=== PATIENT | female | born 1995 | race Caucasian/White ===

== ENCOUNTER 2016-12-06 14:02 | Emergency (ER) | payer MEDICAID ==
[~2016-12-06] VITALS: Ht 160 cm; Wt 88.0 kg
[~2016-12-06 14:02] MED LIST: PRENCAP6 PO; PROM25TA5 PO
[2016-12-06 14:09] VITALS: BP 137/84; PULSE 89; RESP 16; TEMP 98.7; O2SAT 97
--- NOTE | 2016-12-06 14:55 | PD ---
HPI . sore throat for a few days Chief Complaint: Cold / Flu Symptoms Time Seen by Provider: 14:55 Travel History International Travel<30 days: No Contact w/Intl Traveler<30days: No Traveled to known affect area: No History of Present Illness HPI 20-year-old female with no significant past medical history here with complaints of sore throat. She also admits to some congestion and says she has had this for several weeks and it is gradually getting better. She says she thinks she initially had bronchitis, which is now improved. Today she is here with complaints of sore throat and difficulty swallowing. Patient that she opened her mouth looked and saw some white spots. She has self diagnosed with strep and here for treatment. She denies any fever or chills. She has recently started working at a daycare. [facility] Past Medical History Medical History: Denies Significant Hx Asthma: Yes (BRONCHITIS) Diminished Hearing: No Immunizations Current: Yes Tetanus Vaccination: Unknown ?: Not : 0 Para: 1 Past Surgical History Section: Yes Social History Alcohol Use: No Tobacco Use: No Substance Use: No Allergies-Medications (Allergen,Severity, Reaction): Coded Allergies: No Known Allergies (Verified , 12/06/16) Reported Meds & Prescriptions Reported Meds & Active Scripts Active Review of Systems General / Constitutional: No: Fever Eyes: No: Visual changes HENT: Positive: Sore Throat, No: Headaches Cardiovascular: No: Chest Pain or Discomfort Respiratory: No: Shortness of Breath Gastrointestinal: No: Abdominal Pain Genitourinary: No: Dysuria Musculoskeletal: No: Pain Skin: No Rash Neurologic: No: Weakness Psychiatric: No: Depression Endocrine: No: Polydipsia Hematologic/Lymphatic: No: Easy Bruising Physical Exam Narrative GENERAL: AAO x 3, no acute distress, Well-nourished, well-developed patient. SKIN: Warm and dry. No visible rashes or bruising. HEAD: Normocephalic and atraumatic. EYES: No scleral icterus. No injection or drainage. ENT: No nasal drainage noted. Mucous membranes pink. Airway patent. No posterior pharynx erythema, exudates or edema. Both TMs are normal. NECK: Supple, trachea midline. No JVD. CARDIOVASCULAR: Regular rate and rhythm without murmurs, gallops, or rubs. RESPIRATORY: Breath sounds equal bilaterally. No accessory muscle use. No rhonchi or rales. GASTROINTESTINAL: Abdomen soft, non-tender, nondistended. EXTREMITIES: No cyanosis or edema. BACK: Nontender without obvious deformity. No CVA tenderness. PSYCH: AAO x 3, normal affect. Data Data Last Documented VS Vital Signs Date Time Temp Pulse Resp B/P Pulse Ox O2 Delivery O2 Flow Rate FiO2 12/06/16 14:09 98.7 89 16 137/84 97 Orders Group A Rapid Strep Screen (12/06/16 14:58) Influenzae A/B Antigen (12/06/16 14:58) Strep Culture (Group A) (12/06/16 15:10) MDM Medical Decision Making Medical Screen Exam Complete: Yes Emergency Medical Condition: Yes Medical Record Reviewed: Yes Differential Diagnosis Viral pharyngitis, sinusitis, less likely influenza Narrative Course 20-year-old female with no significant past medical history here with complaints of sore throat. She also admits to some congestion and says she has had this for several weeks and it is gradually getting better. She says she thinks she initially had bronchitis, which is now improved. Today she is here with complaints of sore throat and difficulty swallowing. Patient that she opened her mouth looked and saw some white spots. She has self diagnosed with strep and here for treatment. She denies any fever or chills. She has recently started working at a daycare. Patient seen and examined. She has no significant findings on examination. I recommend influenza swab and rapid strep. If negative she can use symptomatic forms of treatment including over-the- counter Flonase, Claritin or Zyrtec. She can also use Tylenol or Motrin as needed for throat pain. Date/Time Procedure Status Source Growth 12/06/16 15:10 Group A Streptococcus Screen ([facility]) - Final Complete Throat 12/06/16 15:10 Influenza Types A,B Antigen ([facility]) - Final Complete Nasal Washing NEGATIVE FOR FLU A AND B ANTIGEN.... 12/06/16 15:10 Group A Streptococcus Screen Received Throat Pending Patient verbalized understanding of instructions, questions were answered, and thanked me for their care. I advised them if their condition worsens, please return to the nearest emergency room for further care. Diagnosis Primary Impression: Acute pharyngitis Qualified Code: J02.9 - Acute pharyngitis, unspecified etiology Patient Instructions: General Instructions Departure Forms: Tests/Procedures, Work Release Enter return to work date: Dec 07, 2016 Additional Instructions: Please return to emergency department if your symptoms return or worsen. Follow up with your primary care provider. You continues Tylenol or Motrin as needed for pain and fever. Follow up with her primary care provider for further workup if your symptoms continue. Try over the counter Claritin for your congestion. Scripts No Active Prescriptions or Reported Meds Disposition: 01 DISCHARGE HOME Condition: Stable Nicole Alfonso Dec 06, 2016 14:55
== END 2016-12-06 15:50 | disposition home or self-care (01) ==
LOC: PHEFT 14:02
DX: J02.9 Acute pharyngitis, unspecified (principal)
CPT/HCPCS: 87081; 87804; 87880; 99284

== ENCOUNTER 2017-01-28 22:57 | Emergency (ER) | payer OTHER, MEDICAID ==
[~2017-01-28] VITALS: Ht 172.7 cm; Wt 85.0 kg
[2017-01-28 23:11] VITALS: BP 155/83; PULSE 92; RESP 16; TEMP 98.1; O2SAT 96
[2017-01-28 23:37] VITALS: RESP 16
[2017-01-28] MEDS ORDERED: SODIUM CHLORIDE 0.9% FLUSH 10 ML FLUSH IVF PRN (23:45)
[2017-01-28] MEDS ORDERED: ONDANSETRON HCL 4 MG/2 ML VIAL IVP ONE (23:45)
[2017-01-28] MEDS ORDERED: MORPHINE SULFATE 4 MG/ML INJ IV ONE (23:45)
[2017-01-28 23:58] VITALS: RESP 16
[2017-01-28 23:59] LABS: AUTOMATED NEUTROPHIL # 7.6 TH/MM3 (1.8-7.7); BASOPHIL % 0.4 % (0.0-2.0); EOSINOPHIL # 0.1 TH/MM3 (0-0.4); EOSINOPHIL % 1.1 % (0.0-4.0); HEMATOCRIT 40.5 % (35.0-46.0); HEMO FLAGS DIFF FINAL; LYMPH % 20.8 % (9.0-44.0); LYMPHOCYTE # 2.3 TH/MM3 (1.0-4.8); MEAN CELL VOLUME 85.1 FL (80.0-100.0); MEAN CORPUSCULAR HGB CONC 34.1 % (32.0-36.0); MONO % 9.3 % (0.0-8.0); NEUT % 68.4 % (16.0-70.0); PLATELET COUNT 320 TH/MM3 (150-450); RED BLOOD COUNT 4.76 MIL/MM3 (4.00-5.30); RED CELL DISTRIBUTION WIDTH 12.8 % (11.6-17.2); WHITE BLOOD COUNT 11.1 TH/MM3 (4.0-11.0)
[2017-01-29 00:13] LABS: BACTERIA, URINE MOD /hpf; BLOOD, URINE NEG (NEG); COMMENT (UR) CULTURE INDICATED; CULTURE IF INDICATED CULTURE INDICATED; GLUCOSE,URINE NEG (NEG); KETONE, URINE NEG (NEG); MUCUS URINE FEW /lpf (OCC); NITRITE,URINE NEG (NEG); PH, URINE 5.5 (5.0-8.5); SQUAMOUS EPITHELIAL CELL URINE 3 /hpf (0-5); URINE COLOR YELLOW (YELLW/STRAW)
[2017-01-29 00:14] LABS: ALT (GPT) 24 U/L (10-53); ANION GAP 10 MEQ/L (5-15); AST (GOT) 19 U/L (15-37); BICARBONATE 24.9 MEQ/L (21.0-32.0); BLOOD UREA NITROGEN 14 MG/DL (7-18); CHLORIDE 105 MEQ/L (98-107); GLOMERULAR FILTRATION RATE 99 ML/MIN (>89); POTASSIUM 3.7 MEQ/L (3.5-5.1); SODIUM (NA) 140 MEQ/L (136-145)
[2017-01-29 00:16] LABS: ALKALINE PHOSPHATASE 96 U/L (45-117); TOTAL BILIRUBIN ADULT 0.4 MG/DL (0.2-1.0)
[2017-01-29] MEDS ORDERED: BACT800T5 PO (00:47)
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
[2017-01-29] MEDS ORDERED: CYCL1TAB29 PO (01:14)
[2017-01-29] MEDS ORDERED: MOTR200T4 PO (01:14)
[2017-01-29] MEDS ORDERED: CYCLOBENZAPRINE HCL 10 MG TAB PO ONE (01:15)
[2017-01-29] MEDS ORDERED: NITROFURANTOIN MONOHYD MACROCR 100 MG CAP PO ONE (01:15)
[2017-01-29] MEDS ORDERED: KETOROLAC TROMETHAMINE 30 MG/ML (IVP) VIAL IV PUSH ONE (01:15)
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
== END 2017-01-29 01:49 | disposition home or self-care (01) ==
LOC: NEPC 22:57
DX: N30.00 Acute cystitis without hematuria (principal); B96.89 Other specified bacterial agents as the cause of diseases classified elsewhere; M54.9 Dorsalgia, unspecified; V43.52XA Car driver injured in collision with other type car in traffic accident, initial encounter; Y92.488 Other paved roadways as the place of occurrence of the external cause
CPT/HCPCS: 71010; 72128; 72131; 80053; 81001; 84703; 85025; 87086; 96374; 96375; 99284; J1885; J2270; J2405

== ENCOUNTER 2017-08-02 12:24 | Emergency (ER) | payer MEDICAID ==
[~2017-08-02] VITALS: Ht 162.6 cm; Wt 84.7 kg
[~2017-08-02 12:24] MED LIST changes: +BACT800T5 PO; +CYCL10TA PO; +MOTR200T4 PO; -PRENCAP6 PO; -PROM25TA5 PO
[2017-08-02 12:26] VITALS: BP 137/65; PULSE 79; RESP 16; TEMP 98.1; O2SAT 96
[2017-08-02] MEDS ORDERED: KETOROLAC TROMETHAMINE 60 MG/2 ML (IM) VIAL IM ONE (13:15)
[2017-08-02] MEDS ORDERED: DIAZEPAM 5 MG TAB PO ONE (13:15)
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
[2017-08-02] MEDS ORDERED: IBUP-232 PO (13:50)
== END 2017-08-02 14:09 | disposition home or self-care (01) ==
LOC: PHEFT 12:24
DX: M54.41 Lumbago with sciatica, right side (principal); V48.6XXA Car passenger injured in noncollision transport accident in traffic accident, initial encounter
CPT/HCPCS: 96372; 99284; J1885

== ENCOUNTER 2017-10-21 09:37 | Emergency (ER) | payer MEDICAID ==
[~2017-10-21] VITALS: Ht 162.6 cm; Wt 86.0 kg
[~2017-10-21 09:37] MED LIST changes: -BACT800T5 PO; -CYCL10TA PO; +IBUP-232 PO; -MOTR200T4 PO
[2017-10-21 09:47] VITALS: BP 133/78; PULSE 108; RESP 18; TEMP 98.3; O2SAT 99
--- NOTE | 2017-10-21 10:35 | PD ---
HPI Chief Complaint: Cold / Flu Symptoms Time Seen by Provider: 10:24 Travel History International Travel<30 days: No Contact w/Intl Traveler<30days: No Traveled to known affect area: No History of Present Illness HPI 21-year-old female presents to the emergency department for evaluation of congestion, sore throat that started yesterday. Patient is concerned she may have strep throat. Patient has history of asthma, but takes no prescribed medications. She reports difficulty breathing due to congestion and sore throat. No exacerbating or alleviating factors. Moderate severity. She denies any known fevers. PFS Past Medical History Medical History: Denies Significant Hx Asthma: Yes (BRONCHITIS) Diminished Hearing: No Immunizations Current: Yes ?: Not LMP: NONE>"[facility]" : 0 Para: 1 Past Surgical History Surgical History: No Previous Surgery Section: Yes Social History Alcohol Use: No Tobacco Use: No Substance Use: No Allergies-Medications (Allergen,Severity, Reaction): Coded Allergies: No Known Allergies (Verified Adverse Reaction, Unknown, 10/21/17) Reported Meds & Prescriptions Reported Meds & Active Scripts Active No Active Prescriptions or Reported Medications Review of Systems Except as stated in HPI: all other systems reviewed are Neg Physical Exam Narrative GENERAL: Well-nourished, well-developed female patient, afebrile. SKIN: Focused skin assessment warm/dry. HEAD: Normocephalic. Atraumatic. ENT: Mucosa pink and moist. Bilateral tonsils are erythematous, 2+ without exudates. Uvula is midline. No uvular edema. No uvular, palatal, or tonsillar deviation. Airway patent. Nasal turbinates appear normal without nasal blood, purulent drainage or septal hematoma. Bilateral tympanic membranes are clear without erythema or perforation. EYES: No scleral icterus. No injection or drainage. NECK: Supple, trachea midline. No JVD or lymphadenopathy. CARDIOVASCULAR: Regular rate and rhythm without murmurs, gallops, or rubs. RESPIRATORY: Breath sounds equal bilaterally. No accessory muscle use. Lungs sounds are clear to auscultation. GASTROINTESTINAL: Abdomen soft, non-tender, nondistended. MUSCULOSKELETAL: No cyanosis, or edema. BACK: Nontender without obvious deformity. No CVA tenderness. Data Data Last Documented VS Vital Signs Date Time Temp Pulse Resp B/P (MAP) Pulse Ox O2 Delivery O2 Flow Rate FiO2 10/21/17 09:47 98.3 108 18 133/78 (96) 99 Orders Orders Influenzae A/B Antigen (10/21/17 10:28) Group A Rapid Strep Screen (10/21/17 10:28) Strep Culture (Group A) (10/21/17 10:35) Dexamethasone Inj (Decadron Inj) (10/21/17 11:45) MDM Medical Decision Making Medical Screen Exam Complete: Yes Emergency Medical Condition: Yes Medical Record Reviewed: Yes Differential Diagnosis Strep pharyngitis versus influenza versus viral pharyngitis Narrative Course 21-year-old female presents to the emergency department for evaluation of congestion, sore throat since yesterday. Strep swab and influenza swabs are ordered and pending. Strep is negative. Influenza is negative. Symptoms and physical are consistent with viral syndrome. Patient is given dexamethasone 8 mg IM for swelling. She is instructed to rest, drink plenty of fluids, Tylenol or Motrin and follow-up with her primary care physician. She is return here for any acute worsening of symptoms. The patient was discharged in stable condition with instructions, including return instructions and follow up instructions. Diagnosis Primary Impression: Viral upper respiratory infection Referrals: Primary Care Physician call for appointment Patient Instructions: General Instructions, Upper Respiratory Infection (ED) Additional Instructions: [id number] Tylenol every 4 hours as needed. [id number] ibuprofen every 6-8 hours as needed. Drink plenty of fluids. Rest. Follow-up with your primary care physician. Return to the emergency department for any acute worsening of symptoms. Med/Other Pt SpecificInfo: No Change to Meds Scripts No Active Prescriptions or Reported Meds Disposition: 01 DISCHARGE HOME Condition: Stable Mireya Pavon ARIC Oct 21, 2017 10:35
[2017-10-21] MEDS ORDERED: DEXAMETHASONE SOD PHOS 4 MG/ML VIAL IM ONE (11:45)
== END 2017-10-21 11:51 | disposition home or self-care (01) ==
LOC: PHED 09:37 → PHEFT 11:51
DX: J06.9 Acute upper respiratory infection, unspecified (principal); J45.909 Unspecified asthma, uncomplicated
CPT/HCPCS: 87081; 87804; 87880; 96372; 99283; J1100